=== PATIENT | female | born 1975 | race African-American/Black ===

== ENCOUNTER 2016-05-12 07:50 | Emergency (ER) | payer OTHER ==
[~2016-05-12] VITALS: Ht 175.3 cm; Wt 124.7 kg
[~2016-05-12 07:50] MED LIST: DIFLUCAN150 MG PO; FLEXERIL10 MG ORAL; IBUPROFEN600 MG ORAL; NKM; NORCO 5-325 TA1 EAC1 ORAL; NORCO 5-325 TA1 EACH ORAL; NYSTATIN15 G1 TP; ONDANSETRON ODT4 MG ORAL
[2016-05-12 09:22] LABS: KETONES,URINE NEGATIVE (NEGATIVE); LEUKOCYTE ESTERASE ,URINE 2+ (NEGATIVE); NITRITE,URINE POSITIVE (NEGATIVE); PH,URINE 8 (4.5-8.0); PROTEIN,URINE NEGATIVE (NEGATIVE); UROBILINOGEN,URINE NORMAL MG/DL (0.0-1.0)
[2016-05-12 09:23] LABS: APPEARANCE,URINE SLIGHTLY CLOUDY
[2016-05-12 09:24] LABS: BACTERIA,URINE MODERATE /HPF; SQUAMOUS EPITHELIAL CELL,UR FEW /LPF (NONE/OCC); WBC,URINE 20-30 /HPF (0 - 2)
[2016-05-12 09:30] VITALS: BP 101/63
[2016-05-12] MEDS ORDERED: IBUPROFEN600 MG ORAL (09:34)
[2016-05-12] MEDS ORDERED: DIFLUCAN150 MG PO (09:34)
[2016-05-12] MEDS ORDERED: KEFLEX500 MG ORAL (09:34)
[2016-05-12 09:40] VITALS: BP 101/63
--- NOTE | 2016-05-12 10:52 | Emergency Room Report ---
History of Present Illness General Chief Complaint: Female Urogenital Problems Source: Patient Present Illness HPI 41-year-old female presents to ED complaining of burning urination x2 days. States dysuria with urinary hesitancy area and denies any fevers or chills. Denies flank pain. Denies nausea or vomiting. Also notes some whitish curdish discharge. Has frequent history of yeast infections. No other aggravating relieving factors. Denies any other associated symptoms Allergies: Coded Allergies: No Known Allergies (Unverified , 12/09/12) Patient History Past Medical History: none Past Surgical History: none Pertinent Family History: none Social History: Denies: alcohol use, drug use, smoking Last Menstrual Period: 1 week Now: No Immunizations: UTD Reviewed Nursing Documentation: PMH: Agreed, PSxH: Agreed Nursing Documentation-PMH Past Medical History: No Stated History Review of Systems All Other Systems: negative except mentioned in HPI Physical Exam Vital Signs Date Time Temp Pulse Resp B/P Pulse Ox O2 Delivery O2 Flow Rate FiO2 05/12/16 08:29 98.1 73 18 98/62 98 Room Air Sp02 EP Interpretation: reviewed, normal General Appearance: no apparent distress, alert, GCS 15, non-toxic, obese Head: normocephalic, atraumatic Eyes: bilateral eye PERRL, bilateral eye normal inspection ENT: hearing grossly normal, normal pharynx, no angioedema, normal voice Neck: full range of motion, supple/symm/no masses Respiratory: chest non-tender, lungs clear, normal breath sounds, speaking full sentences Cardiovascular #1: regular rate, rhythm, no edema Cardiovascular #2: 2+ carotid (R), 2+ carotid (L), 2+ radial (R), 2+ radial (L) , 2+ dorsalis pedis (R), 2+ dorsalis pedis (L) Gastrointestinal: normal bowel sounds, non tender, soft, non-distended, no guarding, no rebound Rectal: deferred Genitourinary: normal inspection, no CVA tenderness Musculoskeletal: back normal, gait/station normal, normal range of motion, non- tender Neurologic: alert, oriented x3, responsive, motor strength/tone normal, sensory intact, speech normal Psychiatric: judgement/insight normal, memory normal, mood/affect normal, no suicidal/homicidal ideation Reflexes: 3+ bicep (R), 3+ bicep (L), 3+ tricep (R), 3+ tricep (L), 3+ knee (R) , 3+ knee (L) Skin: normal color, no rash, warm/dry, well hydrated Lymphatic: no adenopathy Medical Decision Making Diagnostic Impression: Primary Impression: Cystitis ER Course Hospital Course 41-year-old female presents to ED complaining of dysuria with suprapubic pain. Differential diagnoses include: UTI, cystitis, pyelonephritis Clinical course Patient placed on stretcher. After initial history and physical I ordered UA, urine . UA grossly positive. we will treat with abx. patient will also be given Rx for diflucan Diagnosis - cystitis Stable and discharged home with prescriptions for Rx keflex, diflucan. Instructed to followup with PMD. Return to ED if symptoms recur or worsen Labs Test 05/12/16 08:40 Urine Color Pale yellow Urine Appearance Slightly cloudy Urine pH 8 (4.5-8.0) Urine Specific [place] 1.010 (1.005-1.035) Urine Protein Negative (NEGATIVE) Urine Glucose (UA) Negative (NEGATIVE) Urine Ketones Negative (NEGATIVE) Urine Occult Blood 1+ (NEGATIVE) Urine Nitrite Positive (NEGATIVE) Urine Bilirubin Negative (NEGATIVE) Urine Urobilinogen Normal MG/DL (0.0-1.0) Urine Leukocyte Esterase 2+ (NEGATIVE) Urine RBC 2-4 /HPF (0 - 2) Urine WBC 20-30 /HPF (0 - 2) Urine Squamous Epithelial Cells Few /LPF (NONE/OCC) Urine Bacteria Moderate /HPF (NONE) Urine HCG, Qualitative Negative Last Vital Signs Date Time Temp Pulse Resp B/P Pulse Ox O2 Delivery O2 Flow Rate FiO2 05/12/16 09:40 98.1 75 17 101/63 99 Room Air Status: improved Disposition: HOME, SELF-CARE Condition: Stable Scripts Ibuprofen* (MOTRIN*) 600 Mg Tablet 600 MG ORAL Q8H Y for For Pain, #30 TAB 0 Refills Prov: VANESSA PASCUAL M.D. 05/12/16 Fluconazole (DIFLUCAN) 150 Mg Tablet 150 MG PO QWEEK, #2 TAB 0 Refills Prov: VANESSA PASCUAL M.D. 05/12/16 Cephalexin* (KEFLEX*) 500 Mg Capsule 500 MG ORAL Q6H, #28 CAP 0 Refills Prov: VANESSA PASCUAL M.D. 05/12/16 Patient Instructions: Urinary Tract Infection, Vaginal Yeast Infection, Adult VANESSA PASCUAL M.D. May 12, 2016 10:52
== END 2016-05-12 09:40 | disposition home or self-care (01) ==
LOC: EMR 08:53
DX: N30.90 Cystitis, unspecified without hematuria (principal)
CPT/HCPCS: 81003; 81025; 87086; 87181; 99284

== ENCOUNTER 2016-06-03 14:13 | Emergency (ER) | payer OTHER ==
[~2016-06-03] VITALS: Ht 177.8 cm; Wt 124.7 kg
[~2016-06-03 14:13] MED LIST changes: +KEFLEX500 MG ORAL
[2016-06-03] MEDS ORDERED: Albuterol ud Inhalation HHN ONE (15:15)
[2016-06-03] MEDS ORDERED: Ipratropium 0.02% Inh Soln 2.5ml UD HHN ONE (15:15)
--- NOTE | 2016-06-03 15:30 | Emergency Room Report ---
History of Present Illness General Chief Complaint: Upper Respiratory Illness Source: Patient Present Illness HPI 41-year-old female presents to emergency Department complaining of dry cough x3 weeks with nasal congestion and rhinorrhea. Patient denies fevers or chills. Patient denies history of asthma however she states she is a current smoker. She states cough is worse at night and feels as though that she is constantly wheezing. Patient denies productive sputum. She denies neck pain or stiffness. Patient denies sore throat, abdominal pain,N/V, dysuria, frequency, or rashes. She states she is up-to-date with vaccinations. Denies CP, Palpitations, LOC, AMS, dizziness, Changes in Vision, Sensation, paresthesias, or a sudden severe headache. Allergies: Coded Allergies: No Known Allergies (Unverified , 12/09/12) Patient History Past Medical History: see triage record Past Surgical History: none Pertinent Family History: none Last Menstrual Period: 05/28/16 Now: No Immunizations: UTD Reviewed Nursing Documentation: PMH: Agreed, PSxH: Agreed Nursing Documentation-PMH Past Medical History: No History, Except For Review of Systems All Other Systems: negative except mentioned in HPI Physical Exam Vital Signs Date Time Temp Pulse Resp B/P Pulse Ox O2 Delivery O2 Flow Rate FiO2 06/03/16 14:48 97.9 72 14 106/68 100 Room Air Sp02 EP Interpretation: reviewed, normal General Appearance: no apparent distress, alert, GCS 15, non-toxic Head: normocephalic, atraumatic Eyes: bilateral eye PERRL, bilateral eye normal inspection ENT: hearing grossly normal, normal pharynx, no angioedema, normal voice Neck: full range of motion, supple/symm/no masses Respiratory: chest non-tender, lungs clear, no respiratory distress, no accessory muscle use, speaking full sentences - Sentences are inturrupted by episodes of dry high pitched coughing. , wheezing Cardiovascular #1: regular rate, rhythm, no edema Rectal: deferred Genitourinary: normal inspection Musculoskeletal: back normal, gait/station normal, normal range of motion, non- tender, no calf tenderness Neurologic: alert, oriented x3, responsive, motor strength/tone normal, sensory intact, speech normal Psychiatric: judgement/insight normal, memory normal, mood/affect normal, no suicidal/homicidal ideation Skin: normal color, no rash, warm/dry, well hydrated Lymphatic: no adenopathy Medical Decision Making PA Attestation Dr. Mathias is my supervising Physician whom patient management has been discussed with. Diagnostic Impression: Primary Impression: Bronchitis ER Course 41-year-old female presents to emergency Department complaining of dry cough x3 weeks with nasal congestion and rhinorrhea. Patient denies fevers or chills. Patient denies history of asthma however she states she is a current smoker Ddx considered but are not limited to URI, pneumonia, PE, strep pharyngitis, meningitis. Vital signs: Pt.is afebrile VS are WNL H&PE are most consistent with bronchitis, acute no evidence to suggest bacterial infection at this time. ORDERS: none required at this time, the diagnosis is clinical ED INTERVENTIONS: - Albuterol and Atrovent Nebulized treatment. - Re-evaluation post nebulized treatment: Wheezing as improved, however scant diffuse expiratory wheezes are still present. DISCHARGE: At this time pt. is stable for d/c to home. Will provide printed patient care instructions, and any necessary prescriptions. Care plan and follow up instructions have been discussed with the patient prior to discharge. Last Vital Signs Date Time Temp Pulse Resp B/P Pulse Ox O2 Delivery O2 Flow Rate FiO2 06/03/16 15:05 72 14 Room Air 06/03/16 14:48 97.9 106/68 100 Disposition: HOME, SELF-CARE Condition: Stable Scripts Guaifenesin (Guaifenesin) 1,200 Mg Tab.er.12h 1200 MG PO BID for 7 Days, #20 TAB Prov: Majo Henriquez 06/03/16 Albuterol Sulfate* (ALBUTEROL SULFATE MDI*) 8.5 Gm Hfa.aer.ad 2 PUFF INH Q3H, #1 INH 0 Refills Prov: Majo Henriquez 06/03/16 Codeine/Promethazine Hcl* (PROMETHAZINE-CODEINE SYRUP*) 118 Ml Syrup 5 ML ORAL Q6H Y for For Cough, #236 ML 0 Refills Prov: Majo Henriquez 06/03/16 Patient Instructions: Acute Bronchitis, [id number] Additional Instructions: Take medications as directed. Follow up with PCP in 3-5 days Return sooner to ED if new symptoms occur, or current symptoms become worse. Do not drink alcohol, drive, or operate heavy machinery while taking Cough Syrup as this may cause drowsiness. - Please note that this Emergency Department Report was dictated using [employer] runner helper technology software, occasionally this can lead to erroneous entry secondary to interpretation by the dictation equipment. Majo Henriquez Jun 03, 2016 15:30
[2016-06-03] MEDS ORDERED: GUAIFENESIN1200 MG PO (15:38)
[2016-06-03] MEDS ORDERED: PROMETHAZINE-C118 M1 ORAL (15:38)
[2016-06-03] MEDS ORDERED: ALBUTEROL SULF8.5 GM INH (15:38)
[2016-06-03 16:00] VITALS: BP 116/70
== END 2016-06-03 16:06 | disposition home or self-care (01) ==
LOC: EMR 15:30
DX: J40 Bronchitis, not specified as acute or chronic (principal)
CPT/HCPCS: 94640; 94664; 99284

== ENCOUNTER 2017-11-21 09:14 | Emergency (ER) | payer OTHER ==
[~2017-11-21] VITALS: Ht 175.3 cm; Wt 120.7 kg
[~2017-11-21 09:14] MED LIST changes: +ALBUTEROL SULF8.5 GM INH; +GUAIFENESIN1200 MG PO; +PROMETHAZINE-C118 M1 ORAL
[2017-11-21 09:32] VITALS: BP 101/61
--- NOTE | 2017-11-21 11:06 | Emergency Room Report ---
History of Present Illness General Chief Complaint: Skin Rash/Abscess Source: Patient Present Illness HPI This patient states that she has a rash under both her breasts and in her inguinal region. She has been diagnosed with pasquale in the past. She has been trying to keep her skin dry. She would like to try oral antifungal medications. She has no other complaints. Allergies: Coded Allergies: No Known Allergies (Unverified , 12/09/12) Patient History Past Medical History: none Past Surgical History: none Social History: Denies: smoking, alcohol use, drug use Last Menstrual Period: 10/31/17 Now: No : 23 Para: 6 Reviewed Nursing Documentation: PMH: Agreed; PSxH: Agreed Nursing Documentation-PMH Past Medical History: No History, Except For Review of Systems All Other Systems: negative except mentioned in HPI Physical Exam Vital Signs Date Time Temp Pulse Resp B/P (MAP) Pulse Ox O2 Delivery O2 Flow Rate FiO2 11/21/17 09:26 98.2 78 20 101/61 96 Room Air 98.2 Sp02 EP Interpretation: reviewed, normal General Appearance: no apparent distress, alert, GCS 15, non-toxic Head: normocephalic, atraumatic Eyes: bilateral eye normal inspection, bilateral eye PERRL ENT: hearing grossly normal, normal pharynx, no angioedema, normal voice Neck: full range of motion, supple/symm/no masses Respiratory: no respiratory distress, no retraction, no accessory muscle use, speaking full sentences Rectal: deferred Musculoskeletal: back normal, gait/station normal, normal range of motion Neurologic: alert, oriented x3, responsive, motor strength/tone normal, sensory intact, speech normal Psychiatric: judgement/insight normal, memory normal, mood/affect normal, no suicidal/homicidal ideation Skin: warm/dry, well hydrated, other - erythematous and wet skin in the mammillary folds and inguinal folds bilaterally. Lymphatic: no adenopathy Medical Decision Making Diagnostic Impression: Primary Impression: Candidal dermatitis ER Course This patient has findings on exam consistent with pasquale dermatitis. The symptoms are mild and are not disseminated. I will place the patient on a couple days of Diflucan as this is very frustrating to her. I also educated her and keeping her skin dry and will place her on topical treatment also. Overall, the patient is well-appearing and nontoxic. She is given return precautions and follow up instructions. Last Vital Signs Date Time Temp Pulse Resp B/P (MAP) Pulse Ox O2 Delivery O2 Flow Rate FiO2 11/21/17 09:32 98.2 20 101/61 96 Room Air 98.2 11/21/17 09:26 78 Disposition: HOME, SELF-CARE Condition: Stable Referrals: [facility],REFERRING (PCP) Gaby Trejo DO Nov 21, 2017 11:06
[2017-11-21] MEDS ORDERED: NYSTATIN15 GM TOPIC ×2 (11:08→11:22)
[2017-11-21] MEDS ORDERED: FLUCONAZOLE100 MG ORAL ×2 (11:08→11:22)
[2017-11-21] MEDS ORDERED: NYSTATIN15 G2 TP ×2 (11:08→11:22)
[2017-11-21 11:28] VITALS: BP 105/61
== END 2017-11-21 11:31 | disposition home or self-care (01) ==
LOC: EMR 09:52
DX: L30.8 Other specified dermatitis (principal)
CPT/HCPCS: 99283

== ENCOUNTER 2018-12-11 22:57 | Emergency (ER) | payer OTHER ==
[~2018-12-11] VITALS: Ht 177.8 cm; Wt 118.8 kg
[~2018-12-11 22:57] MED LIST changes: +FLUCONAZOLE100 MG ORAL; +NYSTATIN15 G2 TP; +NYSTATIN15 GM TOPIC
--- NOTE | 2018-12-11 23:05 | NUR ---
ED Nurse Note: Patient walked into ED c/o left leg pain that has been an ongoing issue for 2 weeks
[2018-12-11 23:55] VITALS: BP 127/73
--- NOTE | 2018-12-12 00:40 | NUR ---
ED Nurse Note: pt left without being seen. per pt "i cant wait any longer I will just come back tomorrow"
[2018-12-12] MEDS ORDERED: CYCLOBENZAPRINE10 MG ORAL (09:41)
[2018-12-12] MEDS ORDERED: FLUCONAZOLE100 MG ORAL (09:41)
[2018-12-12] MEDS ORDERED: NYSTATIN1 EAC2 TOPIC (09:41)
[2018-12-12] MEDS ORDERED: METRONIDAZOLE500 MG ORAL (09:41)
[2018-12-12] MEDS ORDERED: ZOFRAN ODT8 MG ORAL (09:41)
[2018-12-12] MEDS ORDERED: NYSTATIN15 GM TOPIC (09:41)
== END 2018-12-12 00:40 | disposition left against medical advice (07) ==
LOC: EMR 23:40
DX: Z53.21 Procedure and treatment not carried out due to patient leaving prior to being seen by health care provider (principal)
CPT/HCPCS: 99282

== ENCOUNTER 2018-12-12 08:33 | Emergency (ER) | payer OTHER ==
[~2018-12-12] VITALS: Ht 177.8 cm; Wt 118.8 kg
[2018-12-12 08:45] VITALS: BP 105/64
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
[2018-12-12] MEDS ORDERED: Ketorolac 60mg Inj IM ONE (09:00)
[2018-12-12] MEDS ORDERED: Lidocaine 1% MPF 10mg/ml 5ml INJ ONE (09:15)
[2018-12-12] MEDS ORDERED: Azithromycin 250mg tab ORAL ONE (09:15)
--- NOTE | 2018-12-12 09:23 | NUR ---
ED Nurse Note: Patient presents to ER due to low back pain that radiates to LLE for days; Reports no recent injury. Patient states the patient is from [facility] about 1 year ago. Patient ambulating the room with steady gait. Reports no loss of bladder control. Patient also c/o skin irration/ discoloration under the bilateral breasts x 4 months. Reports no fever or chills. RN administered Toradol injection to left gluteal fer and Rocephin to right gluteal fer. Patient tolerated the injection without difficutly. Patient resting in bed, using watch video on cell phone. Bed in lowest position.
[2018-12-12] MEDS ORDERED: NYSTATIN1 EAC2 TOPIC (09:41)
[2018-12-12] MEDS ORDERED: NYSTATIN15 GM TOPIC (09:41)
[2018-12-12] MEDS ORDERED: FLUCONAZOLE100 MG ORAL (09:41)
[2018-12-12] MEDS ORDERED: METRONIDAZOLE500 MG ORAL (09:41)
[2018-12-12] MEDS ORDERED: CYCLOBENZAPRINE10 MG ORAL (09:41)
[2018-12-12] MEDS ORDERED: ZOFRAN ODT8 MG ORAL (09:41)
[2018-12-12 09:49] VITALS: BP 131/84
--- NOTE | 2018-12-12 09:50 | NUR ---
ER DISCHARGE NOTE: Patient is cleared to be discharged per ERMD, pt is aox4, on room air. Patient was given dc and prescription instructions.Patient verbalized understanding of it. ID band removed. Patient ambulated out with steady gait with all her belongings.
== END 2018-12-12 09:49 | disposition home or self-care (01) ==
LOC: EMR 08:59
DX: B37.2 Candidiasis of skin and nail (principal); M54.32 Sciatica, left side; Z20.2 Contact with and (suspected) exposure to infections with a predominantly sexual mode of transmission
CPT/HCPCS: 96372; 96374; 99284; J0696; Q0144

== ENCOUNTER 2018-12-30 20:13 | Emergency (ER) | payer OTHER ==
[~2018-12-30] VITALS: Ht 177.8 cm; Wt 117.9 kg
[~2018-12-30 20:13] MED LIST changes: +CYCLOBENZAPRINE10 MG ORAL; +METRONIDAZOLE500 MG ORAL; +NYSTATIN1 EAC2 TOPIC; +ZOFRAN ODT8 MG ORAL
--- NOTE | 2018-12-30 20:45 | NUR ---
ED Nurse Note: Pt was seen last week for BV, was treated but had sex before finishing tx, denies symptoms at this time, also c/o urinary urgency
[2018-12-30 21:04] VITALS: BP 118/52
--- NOTE | 2018-12-30 21:16 | Emergency Room Report ---
History of Present Illness General Chief Complaint: Medication Refill Source: Patient Present Illness HPI Is a 43-year-old female with no past medical history. She presents with chief complaint of urinary frequency. Onset for last couple days. She was here last week for exposure to STD. She was told that her boyfriend had some bacterial infection on his penis. She was given Rocephin and azithromycin. She was also treated for intertrigo candidiasis with Flagyl. Patient denies any discharge. No bleeding. Denies any other complaint. Allergies: Coded Allergies: No Known Allergies (Unverified , 12/09/12) Patient History Past Medical History: see triage record, old chart reviewed Past Surgical History: none Pertinent Family History: none Social History: Denies: smoking Last Menstrual Period: 12/17/18 Now: No Immunizations: other Reviewed Nursing Documentation: PMH: Agreed; PSxH: Agreed Nursing Documentation-PMH Past Medical History: No Stated History Review of Systems Eye: Denies: eye pain, blurred vision ENT: Denies: ear pain, nose congestion, throat swelling Respiratory: Denies: cough, shortness of breath Cardiovascular: Denies: chest pain, palpitations Gastrointestinal: Denies: abdominal pain, diarrhea, nausea, vomiting Genitourinary: Reports: dysuria Musculoskeletal: Denies: back pain, joint pain Skin: Denies: rash Neurological: Denies: headache, numbness Endocrine: Denies: increased thirst, increased urine Hematologic/Lymphatic: Denies: easy bruising All Other Systems: negative except mentioned in HPI Physical Exam Vital Signs Date Time Temp Pulse Resp B/P (MAP) Pulse Ox O2 Delivery O2 Flow Rate FiO2 12/30/18 20:39 98.4 71 18 118/52 (74) 99 Room Air Vitals normal Sp02 EP Interpretation: reviewed, normal General Appearance: well appearing, no apparent distress, alert Head: normocephalic, atraumatic Eyes: bilateral eye PERRL, bilateral eye EOMI ENT: hearing grossly normal, normal pharynx Neck: full range of motion, supple, no meningismus Respiratory: chest non-tender, lungs clear, normal breath sounds Cardiovascular #1: regular rate, rhythm, no murmur Gastrointestinal: normal bowel sounds, non tender, no mass, no organomegaly, no bruit, non-distended Musculoskeletal: back normal, gait/station normal, normal range of motion Psychiatric: mood/affect normal Medical Decision Making Diagnostic Impression: Primary Impression: Cystitis ER Course Patient has UTI. She also has yeast in the urine. She has percussion for Diflucan but she has not filled it yet. Will discharge home. I see no evidence of ectopic. No evidence of pyelonephritis. Last Vital Signs Date Time Temp Pulse Resp B/P (MAP) Pulse Ox O2 Delivery O2 Flow Rate FiO2 12/30/18 21:04 98.4 71 18 118/52 99 Room Air Status: unchanged Disposition: HOME, SELF-CARE Condition: Stable Scripts Levofloxacin* (LEVAQUIN*) 500 Mg Tablet 500 MG ORAL DAILY, #7 TAB Prov: Steve Eaton MD 12/30/18 Additional Instructions: Follow-up with in 7 days. Take your Diflucan. Return if symptoms worsen. Steve Eaton MD Dec 30, 2018 21:16
--- NOTE | 2018-12-30 21:22 | NUR ---
ED Nurse Note: urine specimen sent to lab
[2018-12-30 21:46] LABS: APPEARANCE,URINE CLEAR; BILIRUBIN, URINE NEGATIVE (NEGATIVE); GLUCOSE, URINE (UA) NEGATIVE (NEGATIVE); KETONES,URINE NEGATIVE (NEGATIVE); LEUKOCYTE ESTERASE ,URINE 2+ (NEGATIVE); NITRITE,URINE NEGATIVE (NEGATIVE); PH,URINE 7 (4.5-8.0); PROTEIN,URINE NEGATIVE (NEGATIVE); UROBILINOGEN,URINE NORMAL MG/DL (0.0-1.0)
[2018-12-30 21:53] LABS: COLOR,URINE YELLOW
[2018-12-30 22:10] VITALS: BP 124/59
[2018-12-30] MEDS ORDERED: LEVAQUIN500 MG ORAL (22:11)
[2018-12-30 22:30] VITALS: BP 117/64
--- NOTE | 2018-12-30 22:30 | NUR ---
ER DISCHARGE NOTE: Patient is cleared to be discharged per ERMD, pt is aox4, on room air, with stable vital signs. pt was given dc and prescription instructions, pt was able to verbalize understanding, pt id band removed. pt is able to ambulate with steady gait. pt took all belongings.
== END 2018-12-30 22:30 | disposition home or self-care (01) ==
LOC: EMR 21:27
DX: N30.90 Cystitis, unspecified without hematuria (principal)
CPT/HCPCS: 81003; 87086; 87181; Z7502; 99283

== ENCOUNTER 2019-01-06 19:45 | Emergency (ER) | payer OTHER ==
[~2019-01-06] VITALS: Ht 177.8 cm; Wt 117.9 kg
[~2019-01-06 19:45] MED LIST changes: +LEVAQUIN500 MG ORAL
--- NOTE | 2019-01-06 20:11 | NUR ---
ED Nurse Note: pt walked in c/o left side hip and low back pain radiating to left leg, pt reports she has sciatica nerve pain for past two wks and half but progressively worsening. cms intact, ambulatory w/ steady gait, will cont monitor.
[2019-01-06 20:12] VITALS: BP 100/70
[2019-01-06] MEDS ORDERED: GABAPENTIN400 MG ORAL (20:44)
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
[2019-01-06 20:57] LABS: APPEARANCE,URINE CLOUDY; BILIRUBIN, URINE NEGATIVE (NEGATIVE); GLUCOSE, URINE (UA) NEGATIVE (NEGATIVE); KETONES,URINE 1+ (NEGATIVE); LEUKOCYTE ESTERASE ,URINE 1+ (NEGATIVE); NITRITE,URINE NEGATIVE (NEGATIVE); PH,URINE 6 (4.5-8.0); PROTEIN,URINE 2+ (NEGATIVE); UROBILINOGEN,URINE NORMAL MG/DL (0.0-1.0)
[2019-01-06 20:58] LABS: COLOR,URINE YELLOW
[2019-01-06] MEDS ORDERED: Ketorolac 30mg Inj IM ONE (21:00)
[2019-01-06 21:04] VITALS: BP 108/80
--- NOTE | 2019-01-06 21:04 | NUR ---
ED Nurse Note: pt cleared to be d/c per er provider, pt discharge and aftercare instruction provided w/ prescription, pt education done via discussion and handout, pt advised to follow up with pcp or return to ed if changes in condition, vss, ambulatory w/ steady gait, pt verbalized understanding, pt left w/ all belongings.
== END 2019-01-06 21:10 | disposition home or self-care (01) ==
LOC: EMR 20:45
DX: G89.29 Other chronic pain (principal); M54.5 Low back pain; M54.10 Radiculopathy, site unspecified; N39.0 Urinary tract infection, site not specified
CPT/HCPCS: 81003; 81025; 96372; J1885; Z7502; 99283

== ENCOUNTER 2019-03-23 08:03 | Emergency (ER) | payer OTHER ==
[~2019-03-23] VITALS: Ht 177.8 cm; Wt 113.4 kg
[~2019-03-23 08:03] MED LIST changes: +GABAPENTIN400 MG ORAL
[2019-03-23 08:10] VITALS: BP 110/76
--- NOTE | 2019-03-23 08:10 | NUR ---
ED Nurse Note: Patient arrived into ED accompanied by c/o burning urination accompanied by urinary frequency. rates her pain a 8/10 pain. onset for the last 3 days, reports onset for the past 3 days. patient is alert and oriented x4, ambulatory with steady gait, VSS will wait for further orders
[2019-03-23 08:33] LABS: APPEARANCE,URINE CLEAR; BILIRUBIN, URINE NEGATIVE (NEGATIVE); COLOR,URINE PALE YELLOW; GLUCOSE, URINE (UA) NEGATIVE (NEGATIVE); KETONES,URINE NEGATIVE (NEGATIVE); LEUKOCYTE ESTERASE ,URINE 2+ (NEGATIVE); NITRITE,URINE NEGATIVE (NEGATIVE); PH,URINE 7 (4.5-8.0); PROTEIN,URINE NEGATIVE (NEGATIVE); UROBILINOGEN,URINE NORMAL MG/DL (0.0-1.0)
[2019-03-23] MEDS ORDERED: GABAPENTIN400 MG ORAL (08:35)
[2019-03-23] MEDS ORDERED: FLUCONAZOLE150 MG ORAL (08:35)
--- NOTE | 2019-03-23 08:35 | Emergency Room Report ---
History of Present Illness General Chief Complaint: Female Urogenital Problems Source: Patient Present Illness HPI 44-year-old female presents with whitish discharge x3 days she states she has a yeast infection only wants the fluconazole and a refill of her gabapentin she denies any fevers chills, no flank pain, patient denies any aggravating or leading factors severity is mild patient only wants a refill and wants to leave Allergies: Coded Allergies: No Known Allergies (Unverified , 12/09/12) Patient History Past Medical History: see triage record Now: No Reviewed Nursing Documentation: PMH: Agreed; PSxH: Agreed Nursing Documentation-PMH Past Medical History: No History, Except For Hx Cardiac Problems: No - bronchitis Review of Systems All Other Systems: negative except mentioned in HPI Physical Exam Vital Signs Date Time Temp Pulse Resp B/P (MAP) Pulse Ox O2 Delivery O2 Flow Rate FiO2 03/23/19 08:07 98.2 80 17 110/76 (87) 99 Room Air General Appearance: well appearing, no apparent distress Head: normocephalic, atraumatic Eyes: bilateral eye PERRL, bilateral eye EOMI ENT: hearing grossly normal, normal voice Neck: full range of motion, supple Respiratory: no respiratory distress, speaking full sentences Gastrointestinal: non tender, soft Genitourinary: no CVA tenderness Neurologic: alert, normal gait Psychiatric: mood/affect normal Skin: no rash Medical Decision Making Diagnostic Impression: Primary Impression: Yeast infection Additional Impression: Medication refill ER Course [age]-year-old female most likely with a yeast infection will provide fluconazole here, patient has been trying the cream without any relief, differential also includes PID, vaginitis, cervicitis Disposition home with return precautions Last Vital Signs Date Time Temp Pulse Resp B/P (MAP) Pulse Ox O2 Delivery O2 Flow Rate FiO2 03/23/19 08:10 98.2 86 17 110/76 99 Room Air Disposition: HOME, SELF-CARE Condition: Stable Scripts Fluconazole (FLUCONAZOLE) 150 Mg Tablet 150 MG ORAL DAILY, #2 TAB 0 Refills Prov: Chacho Gomez MD 03/23/19 Gabapentin* (GABAPENTIN*) 400 Mg Capsule 400 MG ORAL THREE TIMES A DAY, #30 CAP 0 Refills Prov: Chacho Gomez MD 03/23/19 Referrals: [facility] Tulio Yen. [facility] Patient Instructions: Vaginal Yeast Infection, Adult Additional Instructions: The patient was provided with discharge instructions, notified to follow-up with a primary care doctor and or specialist in the next 24-48 hours, and to return to the ED if they have worsening of their symptoms. Please note that this report is being documented using [employer]AGON technology. This can lead to erroneous entry secondary to incorrect interpretation by the dictating instrument. Chacho Gomez MD Mar 23, 2019 08:35
[2019-03-23 08:40] VITALS: BP 118/73
--- NOTE | 2019-03-23 08:40 | NUR ---
ER DISCHARGE NOTE: Patient is cleared to be discharged per ERMD, pt is aox4, on room air, with stable vital signs. pt was given dc and prescription instructions, pt was able to verbalize understanding, pt id band removed without complications. pt is able to ambulate with steady gait. pt took all belongings.
[2019-03-23] MEDS ORDERED: Fluconazole 150mg tab ORAL ONE (08:45)
== END 2019-03-23 08:40 | disposition home or self-care (01) ==
LOC: EMR 08:35
DX: B37.9 Candidiasis, unspecified (principal)
CPT/HCPCS: 81003; 81025; Z7502; 99283

== ENCOUNTER → 2019-06-20 | Emergency (ER) | payer OTHER ==
[~2019-06-20] VITALS: Ht 175.3 cm; Wt 108.9 kg
[~2019-06-20] MED LIST changes: +FLUCONAZOLE150 MG ORAL; +Fluconazole 150mg tab ORAL ONE
[2019-06-20 18:21] VITALS: BP 120/82
--- NOTE | 2019-06-20 18:21 | NUR ---
ED Nurse Note: Pt ambulated to ED d/t verbalization of "I think I have a yeast infection". Placed on chair. DIEGO, ALL.
--- NOTE | 2019-06-20 18:38 | Emergency Room Report ---
History of Present Illness General Chief Complaint: Female Urogenital Problems Source: Patient Present Illness HPI 44-year-old female presents to the emergency department complaining of thick white vaginal discharge x3 days. Patient reports history of frequent yeast infections usually due to Elda. Patient denies recent antibiotic use. She denies genital lesions she does report some itching. She denies dysuria, hematuria or urinary frequency. She denies abdominal pain or tenderness. She denies fevers or chills. She denies suspicion of . Patient is requesting to be treated just for yeast infection. No other aggravating or relieving factors at this time Allergies: Coded Allergies: No Known Allergies (Unverified , 12/09/12) Patient History Past Medical History: see triage record Past Surgical History: none Pertinent Family History: none Now: No Reviewed Nursing Documentation: PMH: Agreed; PSxH: Agreed Nursing Documentation-PMH Past Medical History: No History, Except For Hx Cardiac Problems: No - bronchitis Review of Systems All Other Systems: negative except mentioned in HPI Physical Exam Vital Signs Date Time Temp Pulse Resp B/P (MAP) Pulse Ox O2 Delivery O2 Flow Rate FiO2 06/20/19 18:18 98.1 69 17 120/82 (95) 99 Room Air Sp02 EP Interpretation: reviewed, normal General Appearance: no apparent distress, alert, GCS 15, non-toxic Head: normocephalic, atraumatic Eyes: bilateral eye normal inspection, bilateral eye PERRL ENT: hearing grossly normal, normal voice Neck: full range of motion Respiratory: lungs clear, normal breath sounds, speaking full sentences Cardiovascular #1: regular rate, rhythm Gastrointestinal: normal bowel sounds, non tender, soft Rectal: deferred Genitourinary: normal inspection, no CVA tenderness, deferred - by pt. Musculoskeletal: normal range of motion, gait/station normal, non-tender Neurologic: alert, motor strength/tone normal, oriented x3, sensory intact, responsive, speech normal Psychiatric: judgement/insight normal Skin: no rash, normal color Lymphatic: no adenopathy Medical Decision Making PA Attestation Dr. Gomez Is my supervising Physician whom patient management has been discussed with. Diagnostic Impression: Primary Impression: Vaginal yeast infection ER Course 44-year-old female presents to the emergency department complaining of thick white vaginal discharge x3 days. Patient reports history of frequent yeast infections usually due to Elda. Patient denies recent antibiotic use. She denies genital lesions she does report some itching. She denies dysuria, hematuria or urinary frequency. She denies abdominal pain or tenderness. She denies fevers or chills. She denies suspicion of . Patient is requesting to be treated just for yeast infection. No other aggravating or relieving factors at this time Ddx considered but are not limited to UTi , Pyelo, STI, Stone, Cystitis, vaginal laceration, vaginitis. Vital signs: are WNL, pt. is afebrile H& PE are most consistent with: Vaginitis ORDERS: - None dx is clinical ED INTERVENTIONS: -Diflucan PO DISCHARGE: At this time pt. is stable for d/c to home. Will provide printed patient care instructions, and any necessary prescriptions. Care plan and follow up instructions have been discussed with the patient prior to discharge. discussed with the patient prior to discharge. Last Vital Signs Date Time Temp Pulse Resp B/P (MAP) Pulse Ox O2 Delivery O2 Flow Rate FiO2 06/20/19 18:21 98.1 17 120/82 99 Room Air 06/20/19 18:18 69 Disposition: HOME, SELF-CARE Condition: Stable Scripts Fluconazole (FLUCONAZOLE) 100 Mg Tablet 100 MG ORAL DAILY, #3 TAB 0 Refills Prov: Majo Henriquez 06/20/19 Patient Instructions: Vaginal Yeast Infection, Adult Additional Instructions: Take medications as directed. Follow up with a PCP or PAPER REWINDER within 3 days, even if your symptoms have resolved. Return sooner to ED if new symptoms occur, or current symptoms become worse. - Please note that this Emergency Department Report was dictated using [employer]ain[employer] maker technology software, occasionally this can lead to erroneous entry secondary to interpretation by the dictation equipment. Majo Henriquez Jun 20, 2019 18:38
[2019-06-20 18:46] VITALS: BP 110/98
== END | disposition home or self-care (01) ==
LOC: EMR 18:40
DX: B37.3 Candidiasis of vulva and vagina (principal)
CPT/HCPCS: 99282